=== PATIENT | female | born 1955 | race Two or more races ===

== ENCOUNTER 2022-10-08 13:29 | Emergency (ER) | payer OTHER ==
[~2022-10-08] VITALS: Ht 165.1 cm; Wt 65.8 kg
[2022-10-08] MEDS ORDERED: CRESTOR5 MG PO (13:56)
[2022-10-08] MEDS ORDERED: IRBESARTAN75 MG PO (13:56)
[2022-10-08] MEDS ORDERED: JANUMET XR 1001 EACH PO (13:56)
== END 2022-10-08 23:34 | disposition home or self-care (01) ==
LOC: ER 13:29
PROVIDERS: General Practice
DX: N39.0 Urinary tract infection, site not specified (principal); N93.8 Other specified abnormal uterine and vaginal bleeding; I10 Essential (primary) hypertension; E11.9 Type 2 diabetes mellitus without complications; Z79.84 Long term (current) use of oral hypoglycemic drugs; N20.0 Calculus of kidney
CPT/HCPCS: 36415; 74176; 96365; 96366; 99284; J7030